=== PATIENT | female | born 2000 ===

== ENCOUNTER 2021-12-12 05:45 | Emergency (ER) | payer OTHER | END 2021-12-12 07:15 | disposition home or self-care (01) | LOC: CSHERS 05:45 | DX: S10.91XA Abrasion of unspecified part of neck, initial encounter (principal); F17.210 Nicotine dependence, cigarettes, uncomplicated; Y04.0XXA Assault by unarmed brawl or fight, initial encounter | CPT/HCPCS: 99283 ==